=== PATIENT | male | born 1985 | race Caucasian/White ===

== ENCOUNTER 2019-07-04 16:34 | Emergency (ER) | payer OTHER, BC ==
[~2019-07-04] VITALS: Ht 185 cm; Wt 145.0 kg
[~2019-07-04 16:34] MED LIST: CALC-656; DULO60CA6 PO; MULT-418; TELM40T PO
[2019-07-04] MEDS ORDERED: LOSA100T57 (16:48)
[2019-07-04] MEDS ORDERED: VORT20TA (16:48)
[2019-07-04] MEDS ORDERED: PANT40TA3 (16:48)
[2019-07-04] MEDS ORDERED: AMLO5TAB9 (16:48)
[2019-07-04] MEDS ORDERED: LEVO25TA5 (16:48)
[2019-07-04] MEDS ORDERED: TETANUS,DIPTH,PERTUSS P/F (BOOSTRIX) 0.5 ML VIAL IM ONE (17:15)
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
[2019-07-04 17:45] VITALS: BP 188/125
== END 2019-07-04 17:45 | disposition home or self-care (01) ==
LOC: EDUNIT# 16:34 → ER 16:37
DX: S66.911A Strain of unspecified muscle, fascia and tendon at wrist and hand level, right hand, initial encounter (principal); I10 Essential (primary) hypertension; E03.9 Hypothyroidism, unspecified; F41.9 Anxiety disorder, unspecified; F32.9 Major depressive disorder, single episode, unspecified; Z23 Encounter for immunization; Z88.1 Allergy status to other antibiotic agents; V49.40XA Driver injured in collision with unspecified motor vehicles in traffic accident, initial encounter
CPT/HCPCS: 73110; 90715

== ENCOUNTER → 2021-12-27 | Outpatient (CLI) | payer BC ==
[~2021-12-27] MED LIST changes: +AMLO-250; +LEVO25TA5; +LOSA100T57; +PANT40TA52; +VORT20TA
--- NOTE | 2021-12-27 18:48 | Diagnostic Imaging Report ---
INDICATION: Wrist pain EXAMINATION: Right wrist 12/27/2021 COMPARISON: 07/04/2019 FINDINGS: 3 views of the wrist. On the lateral view, there is a very tiny density along the dorsal border of the osseous structures. A small triquetral fracture is not excluded; correlate with site of pain. The remaining osseous structures appear unremarkable. No dislocations. Joint spaces appear maintained. Soft tissues unremarkable. IMPRESSION: 1. Tiny density abutting the dorsal border of the carpals which could represent a tiny triquetral fracture. Correlate with site of pain. Dictated by: Dictated on workstation # [id number]
== END ==
LOC: RAD 15:44
PROVIDERS: ATTEND Internal Medicine
DX: M25.531 Pain in right wrist (principal)
CPT/HCPCS: 73110